=== PATIENT | female | born 1985 | race Two or more races ===

== ENCOUNTER 2022-06-03 11:00 | Day surgery (SDC) | payer OTHER ==
[2022-06-03] MEDS ORDERED: IBU600 MG PO (15:19)
[2022-06-03] MEDS ORDERED: MORGIDOX100 MG PO (15:19)
== END 2022-06-03 18:55 | disposition home or self-care (01) ==
LOC: CIR.AMB 11:00
PROVIDERS: ATTEND Obstetrics & Gynecology
DX: O02.1 Missed abortion (principal); O72.2 Delayed and secondary postpartum hemorrhage; Z91.013 Allergy to seafood; Z20.822 Contact with and (suspected) exposure to COVID-19